=== PATIENT | male | born 1970 | race Hispanic/Latino ===

== ENCOUNTER 2017-11-16 16:29 | Emergency (ER) | payer SELFPAY | END 2017-11-16 17:37 | disposition home or self-care (01) | LOC: EDH 16:29 | DX: S70.11XA Contusion of right thigh, initial encounter (principal); Z72.0 Tobacco use; X58.XXXA Exposure to other specified factors, initial encounter; Y93.89 Activity, other specified; Y92.89 Other specified places as the place of occurrence of the external cause; Y99.8 Other external cause status | CPT/HCPCS: 73552 ==

== ENCOUNTER 2018-01-06 07:55 | Emergency (ER) | payer SELFPAY | END 2018-01-06 08:30 | disposition home or self-care (01) | LOC: EDH 07:55 | DX: K40.90 Unilateral inguinal hernia, without obstruction or gangrene, not specified as recurrent (principal); Z72.0 Tobacco use | CPT/HCPCS: 99281 ==

== ENCOUNTER 2018-11-01 18:00 | Emergency (ER) | payer SELFPAY ==
[2018-11-01] MEDS ORDERED: TETRACAINE HCL 0.5% 4 ML OPHTH SOLN ONE (18:38)
[2018-11-01] MEDS ORDERED: FLUORESCEIN SODIUM 1 STRIP STRIP ONE (18:38)
[2018-11-01] MEDS ORDERED: NA BORATE/BORIC AC/H2O/NACL 120 ML OPHTH IRRIG SOLN ONE (18:38)
[2018-11-01] MEDS ORDERED: TETANUS/DIPHTHERIA TOXOID [ADULT] 0.5 ML VIAL IM ONE (18:55)
== END 2018-11-01 19:14 | disposition home or self-care (01) ==
LOC: EDH 18:00
DX: S05.02XA Injury of conjunctiva and corneal abrasion without foreign body, left eye, initial encounter (principal); Z72.0 Tobacco use; X58.XXXA Exposure to other specified factors, initial encounter; Y93.89 Activity, other specified; Y92.89 Other specified places as the place of occurrence of the external cause; Y99.8 Other external cause status
CPT/HCPCS: 90471; 90714

== ENCOUNTER 2019-11-07 10:43 | Emergency (ER) | payer SELFPAY ==
[2019-11-07] MEDS ORDERED: SODIUM CHLORIDE 0.9% 1000ML 1,000 ML IV ONE (11:26)
[2019-11-07 11:30] LABS: BASOPHILS % (AUTO) 0.5 % (0.0-5.0); EOSINOPHILS % (AUTO) 2.3 % (0.0-8.0); HEMATOCRIT 39.3 % (42-54); LYMPHOCYTES % (AUTO) 25.2 % (21.0-51.0); MEAN CORPUSCULAR HEMOGLOBIN 29.1 pg (27.0-33.0); MEAN CORPUSCULAR HGB CONC 33.3 g/dL (32.0-36.0); MEAN CORPUSCULAR VOLUME 87.3 fL (79-99); MONOCYTES % (AUTO) 5.2 % (3.0-13.0); NEUTROPHILS % (AUTO) 66.5 % (40.0-77.0); PLATELET COUNT (AUTO) 267 K/uL (130-400); RED CELL DISTRIBUTION WIDTH 13.1 % (11.0-15.5); WHITE BLOOD COUNT (AUTO) 6.2 K/uL (4.8-10.8)
[2019-11-07 11:38] LABS: CREATININE 0.8 mg/dL (0.5-1.5); POTASSIUM 3.8 mmol/L (3.5-5.1)
[2019-11-07 11:43] LABS: ALBUMIN 3.8 g/dL (3.5-5.0); BILIRUBIN,TOTAL 0.6 mg/dL (0.2-1.0); TOTAL PROTEIN, SERUM 7.9 g/dL (6.0-8.3)
[2019-11-07 11:46] LABS: INR 0.98 (0.85-1.15); PARTIAL THROMBOPLASTIN TIME 25.2 SEC (26.3-35.5); PROTHROMBIN TIME 10.3 SEC (9.6-11.6)
[2019-11-07] MEDS ORDERED: DiphenhydrAMINE HCL 50 MG/ML VIAL ONE (12:47)
[2019-11-07 13:06] LABS: APPEARANCE,URINE Clear (CLEAR); BILIRUBIN,URINE Negative (NEGATIVE); COLOR,URINE Yellow (YELLOW); GLUCOSE, URINE (UA) Negative (NEGATIVE); KETONES,URINE Negative (NEGATIVE); LEUKOCYTE ESTERASE ,URINE Negative (NEGATIVE); NITRATE,URINE Negative (NEGATIVE); OCCULT BLOOD,URINE Negative (NEGATIVE); PH,URINE 5.5 (5.0-8.0); PROTEIN,URINE Negative (NEGATIVE); UROBILINOGEN,URINE 0.2 mg/dL (0.2-1.0)
[2019-11-07 13:13] LABS: AMPHET/METH SCREEN,URINE NEGATIVE (NEGATIVE); BARBITURATE SCREEN, URINE NEGATIVE (NEGATIVE); BENZODIAZEPINES SCREEN,URINE NEGATIVE (NEGATIVE); CANNABINOID SCREEN,URINE NEGATIVE (NEGATIVE); COCAINE SCREEN,URINE NEGATIVE (NEGATIVE); OPIATE SCREEN,URINE NEGATIVE (NEGATIVE); PHENCYCLIDINE SCREEN,URINE NEGATIVE (NEGATIVE)
== END 2019-11-07 13:52 | disposition home or self-care (01) ==
LOC: EDH 10:43
DX: R42 Dizziness and giddiness (principal); Z98.890 Other specified postprocedural states; Z87.891 Personal history of nicotine dependence
CPT/HCPCS: 36415; 71045; 80053; 80305; 81003; 82550; 84484; 85025; 85610; 85730; 93005; 96361; 96374; 99285; J1200; J7030

== ENCOUNTER 2021-06-28 14:00 | Emergency (ER) | payer SELFPAY ==
[~2021-06-28] VITALS: Ht 165.1 cm; Wt 68.0 kg
[2021-06-28] MEDS ORDERED: P-EP-94 PO (17:22)
[2021-06-28] MEDS ORDERED: OXYM30SP27 NS (17:22)
[2021-06-28 17:41] VITALS: BP 106/71
== END 2021-06-28 17:42 | disposition home or self-care (01) ==
LOC: EDH 14:00
DX: H69.81 Other specified disorders of Eustachian tube, right ear (principal); H91.91 Unspecified hearing loss, right ear